=== PATIENT | female | born 1945 | race Caucasian/White ===

== ENCOUNTER 2025-09-26 23:41 | Inpatient (IN) | payer MEDICARE, MEDICAID ==
[~2025-09-26] VITALS: Ht 160 cm; Wt 72.8 kg
--- NOTE | 2025-09-27 00:35 | ED.PDOC ---
History of Present Illness HPI Comments 80-year-old female who came to ER due to back pains. Patient lives alone. Patient recently discharged today from [facility], diagnosed with UTI. However she is unable to take her medications. Complaining of abdominal and back pain for weeks. Family is concerned that nobody will take care of her s o she was sent to the ER. REVIEW OF SYSTEMS: General: No fever, no chills, or fatigue HEENT: No sore throat, no earache, no congestion, no neck pain. Cardiac: No chest pain. No palpitations. Lungs: No shortness of breath, no cough. GI: No nausea, no vomiting, no diarrhea, no constipation, no abdominal pain : No dysuria, frequency, or urgency. No hematuria. Musculoskeletal: No joint pain , no joint swelling, no extremity edema. (+) back pains Skin: No rash, no itching. Neuro: No headache, no dizziness, no weakness EXAM: General: Awake, alert and oriented. No acute distress. Skin: Skin in warm, dry and intact. Appropriate color for ethnicity. HEENT: The head is normocephalic and atraumatic. Conjunctivae are clear without exudates or hemorrhage. Sclera is non-icteric. EOM are intact. No signs of nystagmus. Eyelids are normal in appearance without swelling or lesions. Oral mucosa is pink and moist Neck: The neck is supple with normal range of motion. No JVD. Cardiac: Heart rate and rhythm are normal. No murmurs, gallops, or rubs are auscultated. Respiratory: No signs of respiratory distress. Lung sounds are clear in all lo bes bilaterally without rales, rhonchi, or wheezes. Abdominal: Abdomen is soft, non-tender without distention. Bowel sounds are present and normoactive in all four quadrants. Extremities: Upper and lower extremities are atraumatic in appearance without de formity or edema. Neurological: The patient is awake, alert and oriented to person, place, and time with normal speech. Speech is clear. There is no facial asymmetry. Psychiatric: Appropriate mood and affect. Good judgement and insight Chief Complaint: Back Pain Time Seen by MD: 00:35 Reviewed Notes: Nurses Notes Information Source: Patient Mode of Arrival: EMS Past Medical History PAST MEDICAL HISTORY: Dementia, UTI'S Surgical History: Denies all surgeries ARTISTS' BOOKING REPRESENTATIVE History: Denies all ARTISTS' BOOKING REPRESENTATIVE Hx Family History Family History: Reviewed,noncontributory to illness Social History Smoker: Non-Smoker Alcohol: Denies ETOH Use Drugs: Denies Drug Use Lives In: Home Was a procedure done? Was a procedure done?: No Differential Dx Considerations may include: Back pain. UTI. Dementia X-Ray, Labs, Meds, VS Vital Signs Date Time Temp Pulse Resp B/P (MAP) Pulse Ox O2 Delivery O2 Flow Rate FiO2 09/26/25 23:43 97.7 63 18 141/68 100 97.7 Lab Test 09/27/25 02:21 09/27/25 00:27 Range/Units Urine Color Yellow Yellow Urine Clarity Turbid H Clear Urine pH 6.0 5.0-9.0 Urine Specific [place] 1.033 1.001-1.035 Urine Protein 1+ H Negative Urine Ketones Trace Negative Urine Blood 2+ H Negative /uL Urine Nitrite Negative Negative Urine Bilirubin Negative Negative Urine Urobilinogen 3 H Negative mg/dL Urine Leukocyte Esterase 2+ Negative /uL Urine RBC 198 0 - 4 /hpf Urine Microscopic WBC 56 H 0-5 /HPF Urine Squamous Epithelial Cells Few <5 /hpf Urine Bacteria None seen None Seen /hpf Urine Mucus Few None Seen Urine Glucose Normal Normal mg/dL White Blood Count 8.5 4.4-10.8 10^3/uL Red Blood Count 3.93 L 4.0-5.20 10^6/uL Hemoglobin 12.6 12.2-16.2 g/dL Hematocrit 37.3 36.0-46.0 % Mean Corpuscular Volume 95.0 80.0-100.0 fL Mean Corpuscular Hemoglobin 32.2 H 28.0-32.0 pg Mean Corpuscular Hemoglobin Concent 33.8 32.0-36.0 g/dL Red Cell Distribution Width 17.5 H 11.8-14.3 % Platelet Count 443 140-450 10^3/uL Mean Platelet Volume 7.0 6.9-10.8 fL Neutrophils (%) (Auto) 78.0 37.0-80.0 % Lymphocytes (%) (Auto) 13.4 10.0-50.0 % Monocytes (%) (Auto) 7.2 0.0-12.0 % Eosinophils (%) (Auto) 0.9 0.0-7.0 % Basophils (%) (Auto) 0.5 0.0-2.0 % Neutrophils # (Auto) 6.6 1.6-8.6 10 ^3/uL Lymphocytes # (Auto) 1.1 0.4-5.4 10 ^3/uL Monocytes # (Auto) 0.6 0-1.3 10 ^3/uL Eosinophils # (Auto) 0.1 0-0.8 10 ^3/uL Basophils # (Auto) 0 0-0.2 10 ^3/uL Nucleated Red Blood Cells 0.1 % Sodium Level 142 136-145 mmol/L Potassium Level 4.5 3.5-5.1 mmol/L Chloride Level 107 98-107 mmol/L Carbon Dioxide Level 27 20-31 mmol/L Anion Gap 8 5-15 Blood Urea Nitrogen 19 9-23 mg/dL Creatinine 0.72 0.550-1.02 mg/dL Glomerular Filtration Rate Calc 86 >90 mL/min BUN/Creatinine Ratio 26.4 H 10.0-20.0 Serum Glucose 140 H 74-106 mg/dL Calcium Level 9.5 8.7-10.4 mg/dL Time of 1ST Reevaluation: 00:29 Reevaluation 1ST: Unchanged Patient Education/Counseling: Need For Follow Up Family Education/Counseling: No Family Present SEPSIS Sepsis Screen Date sepsis recognized/suspect: Sep 26, 2025 Time Sepsis recognized/suspect: 2342 Recent Procedure: No On Antibiotic Therapy: No Respiratory Rate >20: No Heart Rate >90: No Temp<36 C (96.8 F) or >38.3 C: No SBP <90 or MAP <65 mmHG: No New Acute Mental Status Change: No Is the patient on CPAP, BIPAP,: No Physician Orders Ceftriaxone Ivpb Rocephin (09/27/25 03:45) * Staff Anesthetist Consult (09/27/25 ) Vital Signs Date Time Temp Pulse Resp B/P (MAP) Pulse Ox O2 Delivery O2 Flow Rate FiO2 09/26/25 23:43 97.7 63 18 141/68 100 97.7 Laboratory Tests Test 09/27/25 00:27 White Blood Count 8.5 10^3/uL (4.4-10.8) Departure 1 Departure Time of Disposition: 03:40 Impression: Primary Impression: Urinary tract infection Additional Impression: Unable to care for self Disposition: 09 ADMITTED INPATIENT Condition: Stable Comments Antibiotics initiated in the ED Patient is stable Patient admitted to hospitalist service for further treatment, evaluation and monitoring. Critical Care Note Critical Care Time?: No Stability Stability form required: No Heart Score Heart Score: Heart Score Response (Comments) Value History N/A 0 EKG N/A 0 Age N/A 0 Risk Factors N/A 0 Troponin N/A 0 Total 0 I personally scribed for SHELLY YU MD ([email or web address]) on 09/27/25 at 00:35. Electronically submitted by Matthew Cruz ([email or web address]). SHELLY YU MD Sep 27, 2025 00:35
[2025-09-27 00:46] LABS: Hematocrit 37.3 % (36.0-46.0); Hemoglobin 12.6 g/dL (12.2-16.2); Mean Corpuscular Hemoglobin 32.2 pg (28.0-32.0); Mean Corpuscular Volume 95.0 fL (80.0-100.0); Nucleated Red Blood Cells % 0.1 %
[2025-09-27 00:47] LABS: Chloride 107 mmol/L (98-107); Potassium 4.5 mmol/L (3.5-5.1); Sodium 142 mmol/L (136-145)
[2025-09-27 00:48] LABS: Anion Gap 8 (5-15); Calcium 9.5 mg/dL (8.7-10.4); Carbon Dioxide 27 mmol/L (20-31)
[2025-09-27 00:53] LABS: BUN/Creatinine Ratio 26.4 (10.0-20.0); Blood Urea Nitrogen 19 mg/dL (9-23)
[2025-09-27 01:08] LABS: Glucose 140 mg/dL (74-106)
[2025-09-27 02:47] LABS: Urine Protein, UAD 1+ (Negative)
--- NOTE | 2025-09-27 04:40 | DVHHPRES ---
History of Present Illness Resident Creating Document: TWILA WATSON RESIDENT History of Present Illness This is a 80-year-old female with past medical history of dementia, depression, hypothyroidism, vitamin-D deficiency, HTN, HLD, dm 2, gastroparesis brought by EMS due to low-back pain. Patient is a poor historian associated with bilateral hearing difficulty. As per EMS, patient having intractable low back pain. Patient discharged from [facility] today with diagnosis of UTI. Patient did not received antibiotic yet. Patient lives alone and need placement in a snf facility. Patient's son lives 2 blocks away from patient house. During evaluation in ER, patient sitting on wheelchair, limited history provided by patient. No fever SOB, cough, SOB, runny nose or any focal weakness noted. Patient will be benefitted placed to snf facility. Past medical history: As above Surgical history: Unable to obtain history Personal history: Unable to obtain history Home medication: Aspirin, trazodone, risperidone, aripiprazole, levothyroxine 75, vitamin D3, gabapentin, sertraline, metoprolol 25, fenofibrate 145, metformin, alendronate. Review of Systems Constitutional: Yes: Weakness; No: Fever, Chills, Sweats, Malaise, Other ENT: No: Ear pain, Ear discharge, Nose pain, Nose discharge, Nose congestion, Mouth pain, Mouth swelling, Throat pain, Throat swelling, Other Respiratory: No: Cough, Dry, Shortness of breath, SOB with excertion, Wheezing, Hemoptysis, Pleuritic Pain, Sputum, Wheezing, Other Cardiovascular: No: Chest Pain, Palpitations, Orthopnea, Paroxysmal Noc. Dyspnea, Edema, Lt Headedness, Other Gastrointestinal: No: Nausea, Vomiting, Abdominal Pain, Diarrhea, Constipation, Melena, Hematochezia, Other Genitourinary: No Dysuria, No Frequency, No Incontinence, No Hematuria, No Retention, No Other Musculoskeletal: back pain; No: other, neck pain, shoulder pain, arm pain, hand pain, leg pain, foot pain Skin: No: Rash, Lesions, Jaundice, Bruising, Other Neurological: Other (Gait instability); No: Weakness, Numbness, Incoordination, Change in speech, Confusion, Seizures Allergies: Coded Allergies: NO KNOWN ALLERGIES (Unverified , 09/27/25) Exam Vital Signs Vital Signs Date Time Temp Pulse Resp B/P (MAP) Pulse Ox O2 Delivery O2 Flow Rate FiO2 09/26/25 23:43 97.7 63 18 141/68 100 97.7 General Appearance: Alert, Cooperative, mild distress HEENT: Atraumatic, EOMI, Other (Bilateral hearing difficulty) Respiratory: Clear to auscultation, Normal air movement Cardiovascular: Regular rate, Normal S1, Normal S2, No murmurs Abdominal: Normal bowel sounds, Soft, No tenderness, No hepatospenomegaly Extremities: No clubbing, No cyanosis, No edema, Normal pulses Skin: No rashes, No breakdown Neuro: Normal speech, Sensation intact, Other (Gait instability, ) Labs/Xrays Labs Test 09/27/25 02:21 09/27/25 00:27 Range/Units Urine Color Yellow Yellow Urine Clarity Turbid H Clear Urine pH 6.0 5.0-9.0 Urine Specific [place] 1.033 1.001-1.035 Urine Protein 1+ H Negative Urine Ketones Trace Negative Urine Blood 2+ H Negative /uL Urine Nitrite Negative Negative Urine Bilirubin Negative Negative Urine Urobilinogen 3 H Negative mg/dL Urine Leukocyte Esterase 2+ Negative /uL Urine RBC 198 0 - 4 /hpf Urine Microscopic WBC 56 H 0-5 /HPF Urine Squamous Epithelial Cells Few <5 /hpf Urine Bacteria None seen None Seen /hpf Urine Mucus Few None Seen Urine Glucose Normal Normal mg/dL White Blood Count 8.5 4.4-10.8 10^3/uL Red Blood Count 3.93 L 4.0-5.20 10^6/uL Hemoglobin 12.6 12.2-16.2 g/dL Hematocrit 37.3 36.0-46.0 % Mean Corpuscular Volume 95.0 80.0-100.0 fL Mean Corpuscular Hemoglobin 32.2 H 28.0-32.0 pg Mean Corpuscular Hemoglobin Concent 33.8 32.0-36.0 g/dL Red Cell Distribution Width 17.5 H 11.8-14.3 % Platelet Count 443 140-450 10^3/uL Mean Platelet Volume 7.0 6.9-10.8 fL Neutrophils (%) (Auto) 78.0 37.0-80.0 % Lymphocytes (%) (Auto) 13.4 10.0-50.0 % Monocytes (%) (Auto) 7.2 0.0-12.0 % Eosinophils (%) (Auto) 0.9 0.0-7.0 % Basophils (%) (Auto) 0.5 0.0-2.0 % Neutrophils # (Auto) 6.6 1.6-8.6 10 ^3/uL Lymphocytes # (Auto) 1.1 0.4-5.4 10 ^3/uL Monocytes # (Auto) 0.6 0-1.3 10 ^3/uL Eosinophils # (Auto) 0.1 0-0.8 10 ^3/uL Basophils # (Auto) 0 0-0.2 10 ^3/uL Nucleated Red Blood Cells 0.1 % Sodium Level 142 136-145 mmol/L Potassium Level 4.5 3.5-5.1 mmol/L Chloride Level 107 98-107 mmol/L Carbon Dioxide Level 27 20-31 mmol/L Anion Gap 8 5-15 Blood Urea Nitrogen 19 9-23 mg/dL Creatinine 0.72 0.550-1.02 mg/dL Glomerular Filtration Rate Calc 86 >90 mL/min BUN/Creatinine Ratio 26.4 H 10.0-20.0 Serum Glucose 140 H 74-106 mg/dL Calcium Level 9.5 8.7-10.4 mg/dL SEPSIS Sepsis Screen Date sepsis recognized/suspect: Sep 26, 2025 Time Sepsis recognized/suspect: 2342 Recent Procedure: No On Antibiotic Therapy: No Respiratory Rate >20: No Heart Rate >90: No Temp<36 C (96.8 F) or >38.3 C: No SBP <90 or MAP <65 mmHG: No New Acute Mental Status Change: No Is the patient on CPAP, BIPAP,: No Physician Orders Ceftriaxone 1gm/50ml (Rocephin) (09/27/25 03:45) * Automatic Beading Lathe Operator Consult (09/27/25 ) Vital Signs Date Time Temp Pulse Resp B/P (MAP) Pulse Ox O2 Delivery O2 Flow Rate FiO2 09/26/25 23:43 97.7 63 18 141/68 100 97.7 Laboratory Tests Test 09/27/25 00:27 White Blood Count 8.5 10^3/uL (4.4-10.8) Assessment/Plan Assessment/Plan Complicated urinary tract infection Gram-positive/Gram-negative Hematuria likely UTI Low-back pain UA: Blood 2+, leukocyte esterase 2+, RBC 198, WBC 56 ER patient is a ceftriaxone and acetaminophen Acetaminophen Ceftriaxone IVF Urine culture Renal ultrasound X-ray lumbar Follow labs Encounter for safe discharge plan Patient lives alone script worker consult for safe placement Dementia Hearing difficulty Osteoporosis Gait instability Fall precaution Alendronate Hyperlipidemia Type 2 diabetes mellitus Essential hypertension Fenofibrate Insulin sliding Metoprolol HbA1c Depression Home medication trazodone, risperidone, aripiprazole, sertraline Hypothyroidism Levothyroxine TSH Diet: Regular GI prophylaxis: Pepcid DVT prophylaxis: Lovenox Goals of care need to be discussed primary team with family member. More than 2 7 minute spent . Patient code status unable to assess during admission, continue Full code status as of now. Case discussed with Dr. Rivas. Plan discussed with: Patient, Other (Nurse) Date of Service: Sep 27, 2025 Billing Provider: DONOVAN RIVAS MD Common Visit Codes: [id number] INP/OBS CARE (HIGH) Secondary Visit Codes: [id number] CARE PLAN 30 MINUTES TWILA WATSON RESIDENT Sep 27, 2025 04:40
[2025-09-27] MEDS ORDERED: ACETAMINOPHEN 325 MG TAB PO PRN (04:45)
[2025-09-27] MEDS ORDERED: DEXTROSE (50%) 50ML SYRG IV PRN (05:15)
[2025-09-27 06:33] LABS: Free T4 (Free Thyroxine) 0.89 ng/dL (0.89-1.76)
[2025-09-27 06:48] LABS: Alanine Aminotransferase 33 U/L (7-40); Albumin 4.4 g/dL (3.2-4.8); Alkaline Phosphatase 79 U/L (46-116); Anion Gap 13 (5-15); BUN/Creatinine Ratio 31.9 (10.0-20.0); Blood Urea Nitrogen 22 mg/dL (9-23); Calcium 9.7 mg/dL (8.7-10.4); Carbon Dioxide 25 mmol/L (20-31); Chloride 106 mmol/L (98-107); Cholesterol 175 mg/dL (< 200); Potassium 4.1 mmol/L (3.5-5.1); Sodium 144 mmol/L (136-145); Total Protein 6.8 g/dL (5.7-8.2); Triglycerides 124 mg/dL (< 150)
[2025-09-27 06:49] LABS: HDL Cholesterol 56 mg/dL (40-59)
[2025-09-27 06:50] LABS: Bilirubin, Total 0.7 mg/dL (0.2-1.0)
[2025-09-27 06:51] LABS: Glucose 118 mg/dL (74-106)
[2025-09-27] MEDS ORDERED: INSULIN LISPRO (HUMAN) 100 UNITS/ML ML SC SCH (07:00)
[2025-09-27] MEDS: ACCU-CHEK COMFORT CURVE STRIP VI SCH (07:00)
--- NOTE | 2025-09-27 07:03 | DVH ---
INDICATION: Rule out YOU TECHNIQUE: Multiple real-time sonographic images of the kidneys and bladder were obtained. COMPARISON: None FINDINGS: The right kidney measures 11.1 cm in length, which is normal in size. There is cortical thinning. There is increased echogenicity of the right kidney. No hydronephrosis. There are nonobstructive renal calculi the larger measuring 8 mm in the lower pole. The left kidney measures 11.1 cm in length, which is normal in size. There is cortical thinning. There is a 2.6 cm cyst in the lower pole. There is decreased echogenicity. No hydronephrosis. There is a 1.3 cm nonobstructive stone in the lower pole. No large intraluminal masses are seen in the bladder. Urinary bladder jets are not visualized. Prevoid residual measures 21 cc. Incidentally noted trace right pleural effusion. IMPRESSION: 1. Echogenic bilateral kidneys suggestive of intrinsic renal parenchymal disease. 2. No hydronephrosis. Bilateral nonobstructive renal calculi measuring up to 1.3 cm in the left kidney. 3. Trace right pleural effusion.
[2025-09-27] MEDS: LEVOTHYROXINE SODIUM 25 MCG TAB ONE (07:21)
[2025-09-27] MEDS: LEVOTHYROXINE SODIUM 25 MCG TAB PO SCH (07:21)
[2025-09-27] MEDS: ACETAMINOPHEN 325 MG TAB PO ONE (07:21)
[2025-09-27 08:06] VITALS: BP 154/72; PULSE 87; RESP 16; TEMP 97.9; O2SAT 94
[2025-09-27] MEDS: InsuLIN REG 1unit/0.01ml Soln (100units/ml) ONE (08:43)
[2025-09-27] MEDS: InsuLIN REG 1unit/0.01ml Soln (100units/ml) SC SCH (08:49)
[2025-09-27] MEDS: METOPROLOL TARTRATE 50 MG TAB ONE (09:01)
[2025-09-27] MEDS: ENOXAPARIN SOD 30 MG/0.3 ML SYRINGE ONE (09:02)
[2025-09-27] MEDS: FAMOTIDINE 20 MG TAB ONE (09:10)
[2025-09-27] MEDS: FAMOTIDINE 20 MG TAB PO SCH (09:26)
[2025-09-27] MEDS: ASPirin-EC 81 mg tab PO SCH (09:27)
[2025-09-27] MEDS: METOPROLOL SUCCINATE XL 50 MG TAB PO SCH (09:32)
[2025-09-27] MEDS: ENOXAPARIN SOD 30 MG/0.3 ML SYRINGE SC SCH (09:33)
[2025-09-27] MEDS: SODIUM CHLORIDE 0.9% 1,000 ML IV SCH (10:51)
--- NOTE | 2025-09-27 10:55 | DVH ---
Indication: severe back pain Technique: XY LUMBAR SPINE 4+ VIEWXY Comparison: None FINDINGS/IMPRESSION: Chronic appearing T12 compression fracture deformity with 60% loss height. Correlate with pain symptoms. MRI thoracic spine can be obtained to further evaluate. Lumbar heights are maintained. Moderate to advanced multilevel disc space narrowing. Lumbar levocurvature. Moderate to advanced lumbar facet hypertrophic changes. Large calcification/ calculus projecting over the expected region of the left kidney/ left renal pelvis measuring 1.4 cm. Pelvic vascular phleboliths. Aortic atherosclerotic disease. Cholecystectomy. Moderate degenerate changes bilateral hips, [id number].
[2025-09-27] MEDS: LEVOTHYROXINE SODIUM 100 MCG/5 ML INJ IV ONE (11:30)
[2025-09-27] MEDS: LEVOTHYROXINE SODIUM 50 MCG TAB PO SCH (11:30)
--- NOTE | 2025-09-27 11:33 | DVHPN2 ---
Reviewed: Care Plan, H&P, Labs, Medications, Previous Orders, Radiology Changes from previous H/P or p: No Changes ENT: No Ear pain, No Ear discharge, No Nose pain, No Nose discharge, No Nose congestion, No Mouth pain, No Mouth swelling, No Throat pain, No Throat swelling, No Other Cardiovascular: No Chest Pain, No Palpitations, No Orthopnea, No Paroxysmal Noc. Dyspnea, No Edema, No Lt Headedness, No Other Respiratory: No Cough, No Dry, No Shortness of breath, No SOB with excertion, No Wheezing, No Hemoptysis, No Pleuritic Pain, No Sputum, No Other Gastrointestinal: No Nausea, No Vomiting, No Abdominal Pain, No Diarrhea, No Constipation, No Melena, No Hematochezia, No Other Genitourinary: No Dysuria, No Frequency, No Incontinence, No Hematuria, No Retention, No Other Musculoskeletal: No other, No neck pain, No shoulder pain, No arm pain; back pain; No hand pain, No leg pain, No foot pain Skin: No Rash, No Lesions, No Jaundice, No Bruising, No Other Objective Vitals Vital Signs Date Time Temp Pulse Resp B/P (MAP) Pulse Ox O2 Delivery O2 Flow Rate FiO2 09/27/25 09:32 83 150/75 09/27/25 08:06 97.9 16 94 97.9 Medications Current Medications Medications Dose Ordered Sig/Michael Route Start Time Stop Time Status Last Admin Dose Admin Sodium Chloride 1,000 ml @ 60 mls/hr [id number] IV 09/27/25 04:45 09/27/25 10:51 60 MLS/HR Enoxaparin Sodium 30 mg DAILY SC 09/27/25 10:00 09/27/25 09:33 30 MG Acetaminophen 650 mg Q6HP PRN PO 09/27/25 04:45 Metoprolol Succinate 25 mg DAILY PO 09/27/25 10:00 09/27/25 09:32 25 MG Aspirin 81 mg DAILY PO 09/27/25 10:00 09/27/25 09:27 81 MG Famotidine 20 mg Q12HR PO 09/27/25 10:00 09/27/25 09:26 20 MG Levothyroxine Sodium 75 mcg QAM@0600 PO 09/27/25 06:00 09/27/25 07:21 75 MCG Ceftriaxone Sodium 50 ml @ 100 mls/hr DAILY@09 IV 09/28/25 09:00 Diagnostic Test (Pha) 1 strip ACHS 09/27/25 07:00 09/27/25 07:00 1 STRIP Insulin Human Regular ACHS SC 09/27/25 07:00 09/27/25 08:49 2 UNITS Dextrose 50 ml UD PRN IV 09/27/25 05:15 Laboratory Results Laboratory Tests 09/27/25 00:27 09/27/25 06:01 Chemistry Test 09/27/25 00:27 09/27/25 06:01 Calcium Level 9.5 mg/dL (8.7-10.4) 9.7 mg/dL (8.7-10.4) Albumin 4.4 g/dL (3.2-4.8) Total Protein 6.8 g/dL (5.7-8.2) Lipid panel Test 09/27/25 06:01 Cholesterol Level 175 mg/dL (< 200) HDL Cholesterol 56 mg/dL (40-59) Triglycerides Level 124 mg/dL (< 150) LFT Test 09/27/25 06:01 Alanine Aminotransferase (ALT) 33 U/L (7-40) Alkaline Phosphatase 79 U/L (46-116) Aspartate Amino Transferase (AST) 55 U/L (13-40) H Total Bilirubin 0.7 mg/dL (0.2-1.0) HgA1c, TSH Test 09/27/25 00:27 09/27/25 06:01 Hemoglobin A1c 5.2 % A1C (<5.7) Thyroid Stimulating Hormone (TSH) 55.05 uIU/mL (0.55-4.78) H Urinalysis Test 09/27/25 02:21 Urine Color Yellow (Yellow) Urine Clarity Turbid (Clear) H Urine pH 6.0 (5.0-9.0) Urine Specific [place] 1.033 (1.001-1.035) Urine Protein 1+ (Negative) H Urine Ketones Trace (Negative) Urine Blood 2+ /uL (Negative) H Urine Nitrite Negative (Negative) Urine Bilirubin Negative (Negative) Urine Urobilinogen 3 mg/dL (Negative) H Urine Leukocyte Esterase 2+ /uL (Negative) Urine RBC 198 /hpf (0 - 4) Urine Microscopic WBC 56 /HPF (0-5) H Urine Squamous Epithelial Cells Few /hpf (<5) Urine Bacteria None seen /hpf (None Seen) Urine Mucus Few (None Seen) Urine Glucose Normal mg/dL (Normal) Labs and/or images reviewed: Labs reviewed by me, Image(s) reviewed by me Assessment/Plan Assessment/Plan Sepsis secondary to urinary tract infection: Blood cultures urine cultures Rocephin Metabolic encephalopathy Severe bilateral lower extremity pain secondary to old T12 compression fracture per CT T-spine Dementia Depression Hypertension Severe hypothyroidism TSH 55: Synthroid 150 mcg p.o. daily, Synthroid 100 mcg IV daily Severe back pain Diabetes: Insulin sliding scale Diabetic neuropathy nephropathy vasculopathy History of gastroparesis Patient was Seen in [facility] yesterday discharged home without any antibiotics for UTI Time spent 70 minutes Advanced care planning time 20 minutes Patient is full code Patient lives alone May need SNF placement Plan discussed with: Patient My Orders Orders - MARLON TORIBIO MD Procedure Category Date Status Time Blood Culture JASON 09/27/25 Logged 11:28 Date of Service: Sep 27, 2025 Billing Provider: MARLON TORIBIO MD Common Visit Codes: [id number] CARE 30-74 MIN MARLON TORIBIO MD Sep 27, 2025 11:33
[2025-09-27 15:55] VITALS: PULSE 87; RESP 18; O2SAT 98
[2025-09-27 17:00] VITALS: BP 163/86; PULSE 66; RESP 16; TEMP 97.6; O2SAT 98
[2025-09-27 18:46] VITALS: BP 150/85
[2025-09-27 20:00] VITALS: RESP 18; O2SAT 98
[2025-09-27 21:00] VITALS: BP 177/82; PULSE 75; RESP 17; TEMP 97.9; O2SAT 96
[2025-09-28] VITALS (8 sets, daily range): BP systolic 100–150; BP diastolic 39–74; PULSE 52–81; RESP 16–18; TEMP 97.5–98.2; O2SAT 94–98
--- NOTE | 2025-09-28 09:55 | DVHPN2 ---
Reviewed: Care Plan, H&P, Labs, Medications, Previous Orders, Radiology Changes from previous H/P or p: No Changes ENT: No Ear pain, No Ear discharge, No Nose pain, No Nose discharge, No Nose congestion, No Mouth pain, No Mouth swelling, No Throat pain, No Throat swelling, No Other Cardiovascular: No Chest Pain, No Palpitations, No Orthopnea, No Paroxysmal Noc. Dyspnea, No Edema, No Lt Headedness, No Other Respiratory: No Cough, No Dry, No Shortness of breath, No SOB with excertion, No Wheezing, No Hemoptysis, No Pleuritic Pain, No Sputum, No Other Gastrointestinal: No Nausea, No Vomiting, No Abdominal Pain, No Diarrhea, No Constipation, No Melena, No Hematochezia, No Other Genitourinary: No Dysuria, No Frequency, No Incontinence, No Hematuria, No Retention, No Other Musculoskeletal: No other, No neck pain, No shoulder pain, No arm pain; back pain; No hand pain, No leg pain, No foot pain Skin: No Rash, No Lesions, No Jaundice, No Bruising, No Other Objective Vitals Vital Signs Date Time Temp Pulse Resp B/P (MAP) Pulse Ox O2 Delivery O2 Flow Rate FiO2 09/28/25 09:19 69 132/63 09/28/25 09:00 98.1 18 97 98.1 09/27/25 20:00 Room Air* 0 21 Intake/Output Intake and Output 09/28/25 07:00 Intake Total 0 ml Balance 0 ml Intake Oral 0 ml # Voids 2 Medications Current Medications Medications Dose Ordered Sig/Michael Route Start Time Stop Time Status Last Admin Dose Admin Sodium Chloride 1,000 ml @ 60 mls/hr [id number] IV 09/27/25 04:45 09/27/25 10:51 60 MLS/HR Enoxaparin Sodium 30 mg DAILY SC 09/27/25 10:00 09/28/25 09:30 30 MG Acetaminophen 650 mg Q6HP PRN PO 09/27/25 04:45 Metoprolol Succinate 25 mg DAILY PO 09/27/25 10:00 09/28/25 09:19 25 MG Aspirin 81 mg DAILY PO 09/27/25 10:00 09/28/25 09:19 81 MG Famotidine 20 mg Q12HR PO 09/27/25 10:00 09/28/25 09:19 20 MG Ceftriaxone Sodium 50 ml @ 100 mls/hr DAILY@09 IV 09/28/25 09:00 09/28/25 09:18 100 MLS/HR Diagnostic Test (Pha) 1 strip ACHS 09/27/25 07:00 09/28/25 06:03 1 STRIP Insulin Human Regular ACHS SC 09/27/25 07:00 09/27/25 08:49 2 UNITS Dextrose 50 ml UD PRN IV 09/27/25 05:15 Levothyroxine Sodium 150 mcg QAM@0600 PO 09/27/25 11:30 Laboratory Results Laboratory Tests 09/27/25 00:27 09/27/25 06:01 Urinalysis Test 09/27/25 02:21 Urine Color Yellow (Yellow) Urine Clarity Turbid (Clear) H Urine pH 6.0 (5.0-9.0) Urine Specific [place] 1.033 (1.001-1.035) Urine Protein 1+ (Negative) H Urine Ketones Trace (Negative) Urine Blood 2+ /uL (Negative) H Urine Nitrite Negative (Negative) Urine Bilirubin Negative (Negative) Urine Urobilinogen 3 mg/dL (Negative) H Urine Leukocyte Esterase 2+ /uL (Negative) Urine RBC 198 /hpf (0 - 4) Urine Microscopic WBC 56 /HPF (0-5) H Urine Squamous Epithelial Cells Few /hpf (<5) Urine Bacteria None seen /hpf (None Seen) Urine Mucus Few (None Seen) Urine Glucose Normal mg/dL (Normal) Labs and/or images reviewed: Labs reviewed by me, Image(s) reviewed by me Assessment/Plan Assessment/Plan Sepsis secondary to urinary tract infection: Blood cultures pending urine cultures pending, continue Rocephin Metabolic encephalopathy Severe bilateral lower extremity pain secondary to old T12 compression fracture per CT T-spine Dementia Depression Hypertension Severe hypothyroidism TSH 55: Synthroid 150 mcg p.o. daily, Synthroid 100 mcg IV daily Severe back pain Diabetes: Insulin sliding scale Diabetic neuropathy nephropathy vasculopathy History of gastroparesis Patient was Seen in [facility] yesterday discharged home without any antibiotics for UTI Time spent 50 minutes Advanced care planning time 20 minutes Patient is full code Patient lives alone May need SNF placement Fabián Burgos [phone] Plan discussed with: Patient My Orders Orders - MARLON TORIBIO MD Procedure Category Date Status Time Blood Culture JASON 09/27/25 In Process 11:28 Levothyroxine PHA 09/27/25 In Process Injection (Synthroid 11:30 Communication Order ORDERS 09/27/25 Transmitted 12:11 Levothyroxine Tablet PHA 09/27/25 In Process (Synthroid Tablet) 11:30 Date of Service: Sep 28, 2025 Billing Provider: MARLON TORIBIO MD Common Visit Codes: [id number] INP/OBS CARE(HIGH) MARLON TORIBIO MD Sep 28, 2025 09:55
[2025-09-28] MEDS ORDERED: LEVOTHYROXINE SODIUM 100 MCG/5 ML INJ IV SCH (10:00)
[2025-09-29] VITALS (7 sets, daily range): BP systolic 104–152; BP diastolic 48–74; PULSE 20–63; RESP 16–17; TEMP 97.5–98; O2SAT 93–99
--- NOTE | 2025-09-29 10:49 | DVHPN2 ---
Reviewed: Care Plan, H&P, Labs, Medications, Previous Orders, Radiology Changes from previous H/P or p: No Changes ENT: No Ear pain, No Ear discharge, No Nose pain, No Nose discharge, No Nose congestion, No Mouth pain, No Mouth swelling, No Throat pain, No Throat swelling, No Other Cardiovascular: No Chest Pain, No Palpitations, No Orthopnea, No Paroxysmal Noc. Dyspnea, No Edema, No Lt Headedness, No Other Respiratory: No Cough, No Dry, No Shortness of breath, No SOB with excertion, No Wheezing, No Hemoptysis, No Pleuritic Pain, No Sputum, No Other Gastrointestinal: No Nausea, No Vomiting, No Abdominal Pain, No Diarrhea, No Constipation, No Melena, No Hematochezia, No Other Genitourinary: No Dysuria, No Frequency, No Incontinence, No Hematuria, No Retention, No Other Musculoskeletal: No other, No neck pain, No shoulder pain, No arm pain; back pain; No hand pain, No leg pain, No foot pain Skin: No Rash, No Lesions, No Jaundice, No Bruising, No Other Objective Vitals Vital Signs Date Time Temp Pulse Resp B/P (MAP) Pulse Ox O2 Delivery O2 Flow Rate FiO2 09/29/25 10:00 50 120/48 09/29/25 08:00 95 Room Air* 0 21 09/29/25 05:00 97.5 17 97.5 Intake/Output Intake and Output 09/29/25 07:00 Intake Total 1680 ml Output Total 50 ml Balance 1630 ml Intake Oral 1630 ml IV Total 50 ml Output Urine Total 50 ml # Voids 3 Medications Current Medications Medications Dose Ordered Sig/Michael Route Start Time Stop Time Status Last Admin Dose Admin Sodium Chloride 1,000 ml @ 60 mls/hr [id number] IV 09/27/25 04:45 09/28/25 14:05 60 MLS/HR Enoxaparin Sodium 30 mg DAILY SC 09/27/25 10:00 09/29/25 09:43 30 MG Acetaminophen 650 mg Q6HP PRN PO 09/27/25 04:45 Metoprolol Succinate 25 mg DAILY PO 09/27/25 10:00 09/28/25 09:19 25 MG Aspirin 81 mg DAILY PO 09/27/25 10:00 09/29/25 09:33 81 MG Famotidine 20 mg Q12HR PO 09/27/25 10:00 09/29/25 09:33 20 MG Ceftriaxone Sodium 50 ml @ 100 mls/hr DAILY@09 IV 09/28/25 09:00 09/29/25 09:31 100 MLS/HR Diagnostic Test (Pha) 1 strip ACHS 09/27/25 07:00 09/29/25 07:00 1 STRIP Insulin Human Regular ACHS SC 09/27/25 07:00 09/28/25 22:13 2 UNITS Dextrose 50 ml UD PRN IV 09/27/25 05:15 Levothyroxine Sodium 150 mcg QAM@0600 PO 09/27/25 11:30 09/29/25 06:40 150 MCG Laboratory Results Laboratory Tests 09/27/25 00:27 09/27/25 06:01 Urinalysis Test 09/27/25 02:21 Urine Color Yellow (Yellow) Urine Clarity Turbid (Clear) H Urine pH 6.0 (5.0-9.0) Urine Specific [place] 1.033 (1.001-1.035) Urine Protein 1+ (Negative) H Urine Ketones Trace (Negative) Urine Blood 2+ /uL (Negative) H Urine Nitrite Negative (Negative) Urine Bilirubin Negative (Negative) Urine Urobilinogen 3 mg/dL (Negative) H Urine Leukocyte Esterase 2+ /uL (Negative) Urine RBC 198 /hpf (0 - 4) Urine Microscopic WBC 56 /HPF (0-5) H Urine Squamous Epithelial Cells Few /hpf (<5) Urine Bacteria None seen /hpf (None Seen) Urine Mucus Few (None Seen) Urine Glucose Normal mg/dL (Normal) Microbiology Microbiology Date/Time Source Procedure Growth Status 09/27/25 12:15 Blood Blood Culture - Preliminary NO GROWTH AFTER 24 HOURS OF INCUBATION. Resulted 09/27/25 04:49 Other Urine Culture - Preliminary Resulted Labs and/or images reviewed: Labs reviewed by me, Image(s) reviewed by me Assessment/Plan Assessment/Plan Sepsis secondary to urinary tract infection: Blood cultures negative urine cultures growing yeast, continue Rocephin Yeast in the urine: Diflucan 200 mg IV daily Metabolic encephalopathy Severe bilateral lower extremity pain secondary to old T12 compression fracture per CT T-spine Dementia Depression Hypertension Severe hypothyroidism TSH 55: Synthroid 150 mcg p.o. daily, Synthroid 100 mcg IV daily Severe back pain Diabetes: Insulin sliding scale Diabetic neuropathy nephropathy vasculopathy History of gastroparesis Patient was Seen in [facility] yesterday discharged home without any antibiotics for UTI Time spent 50 minutes Advanced care planning time 20 minutes Patient is full code Patient lives alone May need SNF placement Fabián Burgos [phone] agrees for local SNF placement Plan discussed with: Patient Date of Service: Sep 29, 2025 Billing Provider: MARLON TORIBIO MD Common Visit Codes: [id number] CARE 30-74 MIN MARLON TORIBIO MD Sep 29, 2025 10:49
[2025-09-29] MEDS ORDERED: DOCUSATE SOD 100 MG CAP PO PRN (11:15)
[2025-09-29] MEDS: FLUCONAZOLE 200MG/100ML 100 ML IV ONE ×2 (13:21→13:25)
[2025-09-29] MEDS: DOCUSATE SOD 100 MG CAP PO ONE ×2 (13:21→13:25)
[2025-09-29] MEDS: LACTULOSE 20Gm/30ML SOLN ONE (13:21)
[2025-09-29] MEDS: LACTULOSE 20Gm/30ML SOLN PO ONE (13:25)
[2025-09-29 14:23] LABS: COVID19 ANTIGEN SOFIA FIA NEGATIVE (NEGATIVE)
[2025-09-30 08:00] VITALS: PULSE 64; RESP 16; O2SAT 98
[2025-09-30 08:43] VITALS: BP 137/61; PULSE 64; RESP 16; TEMP 97.9; O2SAT 98
[2025-09-30] MEDS: FLUCONAZOLE 200MG/100ML 100 ML IV SCH (09:05)
--- NOTE | 2025-09-30 11:47 | DVHPN2 ---
Reviewed: Care Plan, H&P, Labs, Medications, Previous Orders, Radiology Changes from previous H/P or p: No Changes ENT: No Ear pain, No Ear discharge, No Nose pain, No Nose discharge, No Nose congestion, No Mouth pain, No Mouth swelling, No Throat pain, No Throat swelling, No Other Cardiovascular: No Chest Pain, No Palpitations, No Orthopnea, No Paroxysmal Noc. Dyspnea, No Edema, No Lt Headedness, No Other Respiratory: No Cough, No Dry, No Shortness of breath, No SOB with excertion, No Wheezing, No Hemoptysis, No Pleuritic Pain, No Sputum, No Other Gastrointestinal: No Nausea, No Vomiting, No Abdominal Pain, No Diarrhea, No Constipation, No Melena, No Hematochezia, No Other Genitourinary: No Dysuria, No Frequency, No Incontinence, No Hematuria, No Retention, No Other Musculoskeletal: No other, No neck pain, No shoulder pain, No arm pain; back pain; No hand pain, No leg pain, No foot pain Skin: No Rash, No Lesions, No Jaundice, No Bruising, No Other Objective Vitals Vital Signs Date Time Temp Pulse Resp B/P (MAP) Pulse Ox O2 Delivery O2 Flow Rate FiO2 09/30/25 09:06 64 137/61 09/30/25 08:43 97.9 16 98 97.9 09/30/25 08:00 Room Air* 0 21 Intake/Output Intake and Output 09/30/25 07:00 Intake Total 2030 ml Output Total 400 ml Balance 1630 ml Intake Oral 1280 ml IV Total 150 ml Other 600 ml Output Urine Total 400 ml # Voids 2 # Bowel Movements 1 Medications Current Medications Medications Dose Ordered Sig/Michael Route Start Time Stop Time Status Last Admin Dose Admin Sodium Chloride 1,000 ml @ 60 mls/hr [id number] IV 09/27/25 04:45 09/30/25 06:09 60 MLS/HR Enoxaparin Sodium 30 mg DAILY SC 09/27/25 10:00 09/30/25 09:07 30 MG Acetaminophen 650 mg Q6HP PRN PO 09/27/25 04:45 Metoprolol Succinate 25 mg DAILY PO 09/27/25 10:00 09/30/25 09:06 25 MG Aspirin 81 mg DAILY PO 09/27/25 10:00 09/30/25 09:07 81 MG Famotidine 20 mg Q12HR PO 09/27/25 10:00 09/30/25 09:06 20 MG Ceftriaxone Sodium 50 ml @ 100 mls/hr DAILY@09 IV 09/28/25 09:00 09/30/25 09:05 100 MLS/HR Diagnostic Test (Pha) 1 strip ACHS 09/27/25 07:00 09/30/25 06:19 1 STRIP Insulin Human Regular ACHS SC 09/27/25 07:00 09/28/25 22:13 2 UNITS Dextrose 50 ml UD PRN IV 09/27/25 05:15 Levothyroxine Sodium 150 mcg QAM@0600 PO 09/27/25 11:30 09/30/25 06:05 150 MCG Fluconazole 100 ml @ 100 mls/hr DAILY IV 09/30/25 10:00 09/30/25 09:05 100 MLS/HR Docusate Sodium 100 mg [id number] PRN PO 09/29/25 11:15 Laboratory Results Laboratory Tests 09/27/25 00:27 09/27/25 06:01 Urinalysis Test 09/27/25 02:21 Urine Color Yellow (Yellow) Urine Clarity Turbid (Clear) H Urine pH 6.0 (5.0-9.0) Urine Specific [place] 1.033 (1.001-1.035) Urine Protein 1+ (Negative) H Urine Ketones Trace (Negative) Urine Blood 2+ /uL (Negative) H Urine Nitrite Negative (Negative) Urine Bilirubin Negative (Negative) Urine Urobilinogen 3 mg/dL (Negative) H Urine Leukocyte Esterase 2+ /uL (Negative) Urine RBC 198 /hpf (0 - 4) Urine Microscopic WBC 56 /HPF (0-5) H Urine Squamous Epithelial Cells Few /hpf (<5) Urine Bacteria None seen /hpf (None Seen) Urine Mucus Few (None Seen) Urine Glucose Normal mg/dL (Normal) Microbiology Microbiology Date/Time Source Procedure Growth Status 09/27/25 12:15 Blood Blood Culture - Preliminary NO GROWTH AFTER 48 HOURS OF INCUBATION. Resulted 09/27/25 04:49 Other Urine Culture - Final Presumptive Ragini krusei Complete Labs and/or images reviewed: Labs reviewed by me, Image(s) reviewed by me Assessment/Plan Assessment/Plan Sepsis secondary to urinary tract infection: Blood cultures negative urine cultures growing yeast, treated with Diflucan IV Yeast in the urine: Diflucan 200 mg IV daily Acute Metabolic encephalopathy Severe bilateral lower extremity pain secondary to old T12 compression fracture per CT T-spine Dementia Depression Hypertension Severe hypothyroidism TSH 55: Synthroid 150 mcg p.o. daily, Synthroid 100 mcg IV daily Severe back pain Diabetes: Insulin sliding scale Diabetic neuropathy nephropathy vasculopathy History of gastroparesis Son Aubrey [phone] agrees for local SNF placement for rehab Plan discussed with: Patient Date of Service: Sep 30, 2025 Billing Provider: MARLON TORIBIO MD Common Visit Codes: [id number] INP/OBS CARE(HIGH) MARLON TORIBIO MD Sep 30, 2025 11:47
--- NOTE | 2025-09-30 11:56 | DVHDS2 ---
Discharge Summary Date of Admission Sep 27, 2025 at 04:40 Date of Discharge: Sep 30, 2025 Admitting Diagnosis Generalized weakness severe back pain Wounds: T12 compression fracture Labs/Diagnostic Data: Laboratory Results Test 09/30/25 06:18 09/29/25 12:02 09/27/25 06:01 09/27/25 02:21 POC Glucose 104 mg/dl (70-106) SARS-CoV-2 Antigen (Rapid) Negative (NEGATIVE) Sodium Level 144 mmol/L (136-145) Potassium Level 4.1 mmol/L (3.5-5.1) Chloride Level 106 mmol/L (98-107) Carbon Dioxide Level 25 mmol/L (20-31) Anion Gap 13 (5-15) Blood Urea Nitrogen 22 mg/dL (9-23) Creatinine 0.69 mg/dL (0.550-1.02) Glomerular Filtration Rate Calc 89 mL/min (>90) BUN/Creatinine Ratio 31.9 (10.0-20.0) Serum Glucose 118 mg/dL (74-106) Calcium Level 9.7 mg/dL (8.7-10.4) Total Bilirubin 0.7 mg/dL (0.2-1.0) Aspartate Amino Transferase (AST) 55 U/L (13-40) Alanine Aminotransferase (ALT) 33 U/L (7-40) Alkaline Phosphatase 79 U/L (46-116) Total Protein 6.8 g/dL (5.7-8.2) Albumin 4.4 g/dL (3.2-4.8) Triglycerides Level 124 mg/dL (< 150) Cholesterol Level 175 mg/dL (< 200) LDL Cholesterol 106 mg/dL (< 100) HDL Cholesterol 56 mg/dL (40-59) Thyroid Stimulating Hormone (TSH) 55.05 uIU/mL (0.55-4.78) Urine Color Yellow (Yellow) Urine Clarity Turbid (Clear) Urine pH 6.0 (5.0-9.0) Urine Specific [place] 1.033 (1.001-1.035) Urine Protein 1+ (Negative) Urine Ketones Trace (Negative) Urine Blood 2+ /uL (Negative) Urine Nitrite Negative (Negative) Urine Bilirubin Negative (Negative) Urine Urobilinogen 3 mg/dL (Negative) Urine Leukocyte Esterase 2+ /uL (Negative) Urine RBC 198 /hpf (0 - 4) Urine Microscopic WBC 56 /HPF (0-5) Urine Squamous Epithelial Cells Few /hpf (<5) Urine Bacteria None seen /hpf (None Seen) Urine Mucus Few (None Seen) Urine Glucose Normal mg/dL (Normal) Test 09/27/25 00:27 White Blood Count 8.5 10^3/uL (4.4-10.8) Red Blood Count 3.93 10^6/uL (4.0-5.20) Hemoglobin 12.6 g/dL (12.2-16.2) Hematocrit 37.3 % (36.0-46.0) Mean Corpuscular Volume 95.0 fL (80.0-100.0) Mean Corpuscular Hemoglobin 32.2 pg (28.0-32.0) Mean Corpuscular Hemoglobin Concent 33.8 g/dL (32.0-36.0) Red Cell Distribution Width 17.5 % (11.8-14.3) Platelet Count 443 10^3/uL (140-450) Mean Platelet Volume 7.0 fL (6.9-10.8) Neutrophils (%) (Auto) 78.0 % (37.0-80.0) Lymphocytes (%) (Auto) 13.4 % (10.0-50.0) Monocytes (%) (Auto) 7.2 % (0.0-12.0) Eosinophils (%) (Auto) 0.9 % (0.0-7.0) Basophils (%) (Auto) 0.5 % (0.0-2.0) Neutrophils # (Auto) 6.6 10 ^3/uL (1.6-8.6) Lymphocytes # (Auto) 1.1 10 ^3/uL (0.4-5.4) Monocytes # (Auto) 0.6 10 ^3/uL (0-1.3) Eosinophils # (Auto) 0.1 10 ^3/uL (0-0.8) Basophils # (Auto) 0 10 ^3/uL (0-0.2) Nucleated Red Blood Cells 0.1 % Hemoglobin A1c 5.2 % A1C (<5.7) Vitamin B12 Level 222 pg/mL (211-911) Vitamin D 25-Hydroxy 47.3 ng/mL (30.0-100) Free Thyroxine (T4) Calculated 0.89 ng/dL (0.89-1.76) Other Laboratory Tests 09/27/25 06:01 09/27/25 00:27 Brief Hx & Hospital Course: 80-year-old female with a history of dementia hypotension depression hypothyroidism severe back pain diabetes history of gastroparesis burden by family for recurrent falls and severe back pain found to have old T12 compression fracture treated with the pain medications and received physical therapy. The patient also had sepsis secondary to urinary tract infection treated with Rocephin blood cultures came negative urine cultures came positive for yeast treated with the Diflucan IV which he will be converted to p.o. patient also had severe hypothyroidism TSH of 55 started on Synthroid 150 mcg p.o. daily along with the Synthroid 100 mcg IV daily pain. We will recheck TSH. Patient received physical therapy who recommended SNF placement for rehab. The patient to be discharged to senior living facility with the plan is acceptable with the patient and her son Aubrey Consults/Reason for consult None Operations or Procedures CT LS spine Condition at Discharge: Fair Final Diagnosis/Problems List Sepsis secondary to urinary tract infection: Blood cultures negative urine cultures growing yeast, treated with Diflucan IV Yeast in the urine: Diflucan 200 mg IV daily Acute Metabolic encephalopathy Severe bilateral lower extremity pain secondary to old T12 compression fracture per CT T-spine Dementia Depression Hypertension Severe hypothyroidism TSH 55: Synthroid 150 mcg p.o. daily, Synthroid 100 mcg IV daily Severe back pain Diabetes: Insulin sliding scale Diabetic neuropathy nephropathy vasculopathy History of gastroparesis [facility]charge Disposition: [facility] Discharge Instruct/Medications Diet: Cardiac 2g Na,low cholest Activity: Light activity Follow Up/Referral[facility] Medications: see list 35 (Time taken for discharge summary 35 minutes) Discharge Statement: "Patient was advised to return to the ER or call 911 if any headaches, dizziness, shortness of breath, chest pain, abdominal pain, bleeding, fevers, or worsening of medical condition. Patient was counseled about treatment plan, medications, possible side effects, patientverbalized understanding. All questions were answered to the best of my ability. This discharge took greater then 30 minutes in planning, reviewing documentation, counseling the patient, and discussing with other team members." ASSESSMENT ASSESSMENT Hospital Course Improved Assessment Sepsis secondary to urinary tract infection: Blood cultures negative urine cultures growing yeast, treated with Diflucan IV Yeast in the urine: Diflucan 200 mg IV daily Acute Metabolic encephalopathy Severe bilateral lower extremity pain secondary to old T12 compression fracture per CT T-spine Dementia Depression Hypertension Severe hypothyroidism TSH 55: Synthroid 150 mcg p.o. daily, Synthroid 100 mcg IV daily Severe back pain Diabetes: Insulin sliding scale Diabetic neuropathy nephropathy vasculopathy History of gastroparesis Date of Service: Sep 30, 2025 Billing Provider: MARLON TORIBIO MD Common Visit Codes: [id number] DISCH DAY >30min MARLON TORIBIO MD Sep 30, 2025 11:56
[2025-09-30 13:00] VITALS: BP 138/67; PULSE 57; RESP 15; TEMP 97.8; O2SAT 98
[2025-09-30 17:00] VITALS: BP 141/83; PULSE 52; RESP 15; TEMP 98; O2SAT 97
[2025-09-30 17:17] VITALS: BP 138/67; PULSE 64; RESP 20; TEMP 97.8; O2SAT 98
== END 2025-09-30 21:40 | DRG 871 ==
LOC: ER 23:41 → OVERFLOW 09-27 04:40 → WEST WING 09-27 16:01 → TELE-WESTW 09-29 19:22
PROVIDERS: ADMIT Family Medicine; ATTEND Family Medicine
DX: A41.9 Sepsis, unspecified organism (principal); G93.41 Metabolic encephalopathy; N39.0 Urinary tract infection, site not specified; E11.21 Type 2 diabetes mellitus with diabetic nephropathy; E03.9 Hypothyroidism, unspecified; I10 Essential (primary) hypertension; F32.A Depression, unspecified; F03.90 Unspecified dementia, unspecified severity, without behavioral disturbance, psychotic disturbance, mood disturbance, and anxiety; M48.54XA Collapsed vertebra, not elsewhere classified, thoracic region, initial encounter for fracture; Z20.822 Contact with and (suspected) exposure to COVID-19; M81.0 Age-related osteoporosis without current pathological fracture; K31.84 Gastroparesis; E11.40 Type 2 diabetes mellitus with diabetic neuropathy, unspecified; M79.604 Pain in right leg; M79.605 Pain in left leg; R29.6 Repeated falls; Z79.4 Long term (current) use of insulin
CPT/HCPCS: 36415; 72110; 76775; 80048; 80053; 80061; 81001; 82306; 82607; 82962; 83036; 84439; 84443; 85025; 87040; 87086; 87088; 87426; 97163; G0378; J1450; J1815